=== PATIENT | male | born 1945 | race Caucasian/White ===

== ENCOUNTER 2023-02-12 12:12 | Observation (INO) ==
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
[2023-02-12 16:36] LABS: BILIRUBIN,URINE Negative (NEGATIVE); CLARITY,URINE Clear (CLEAR); COLOR,URINE Yellow (YELLOW); GLUCOSE, URINE (UA) Negative (NEGATIVE); KETONES,URINE 1+ (NEGATIVE); LEUKOCYTE ESTERASE ,URINE Negative (NEGATIVE); NITRITE,URINE Negative (NEGATIVE); PROTEIN,URINE Negative (NEGATIVE); URINE, BLOOD Negative (NEGATIVE); UROBILINOGEN,URINE 0.2 (0.2)
[2023-02-12 16:44] LABS: ALANINE AMINOTRANSFERASE 16.3 U/L (0-50); ALBUMIN 4.07 g/dL (3.5-5.0); ALKALINE PHOSPHATASE 48.3 U/L (56-119); ASPARTATE AMINO TRANSFERASE 21.5 U/L (17-59); BILIRUBIN,TOTAL 1.05 mg/dL (0.2-1.3); BLOOD UREA NITROGEN 12.6 mg/dL (9-20); CALCIUM 9.11 mg/dL (8.4-10.2); CARBON DIOXIDE 24.2 mmol/L (22-30.0); CHLORIDE 104.2 mmol/L (98-107); CREATININE 0.89 mg/dL (0.60-1.10); GLUCOSE 99.8 mg/dL (74-106); POTASSIUM 4.15 mmol/L (3.5-5.1); SODIUM 137.3 mmol/L (134.5-145); TOTAL PROTEIN 7.27 g/dL (6.3-8.2)
[2023-02-12 17:21] LABS: AMPHETAMINE SCREEN,URINE NEGATIVE (NEGATIVE); BARBITURATE SCREEN,URINE NEGATIVE (NEGATIVE); METHADONE URINE SCREEN NEGATIVE (NEGATIVE); METHAMPHETAMINES SCREEN,URINE NEGATIVE (NEGATIVE); OPIATE SCREEN,URINE NEGATIVE (NEGATIVE); PHENCYCLIDINE SCREEN,URINE NEGATIVE (NEGATIVE)
[2023-02-12 17:22] LABS: BENZODIAZEPINES SCREEN,URINE NEGATIVE (NEGATIVE); CANNABINOID SCREEN,URINE NEGATIVE (NEGATIVE); COCAIN SCREEN,URINE NEGATIVE (NEGATIVE); OXYCODONE URINE SCREEN NEGATIVE (NEGATIVE); PROPOXYPHENE URINE SCREEN NEGATIVE (NEGATIVE); TRICYCLIC ANTIDEPRESSANTS URIN NEGATIVE (NEGATIVE)
[2023-02-12 17:23] LABS: BASOPHILS % (AUTO) 0.3 % (0.0-3.0); EOSINOPHILS # (AUTO) 0.1 K/ul (0.0-0.7); EOSINOPHILS % (AUTO) 1.8 % (0.0-7.0); HEMATOCRIT 42.7 % (42.0-52.0); HEMOGLOBIN 13.9 g/dl (14.0-18.0); IMMATURE GRANULOCYTE % (AUTO) 0.3 % (0.0-5.0); LYMPHOCYTES # (AUTO) 1.9 K/uL (0.60-3.4); LYMPHOCYTES % (AUTO) 26.4 (10.0-50.0); MEAN CORPUSCULAR HEMOGLOBIN 31.4 pg (27.0-31.0); MEAN CORPUSCULAR HGB CONC 32.6 (31.8-35.4); MEAN CORPUSCULAR VOLUME 96.6 fl (80.0-94.0); MONOCYTES # (AUTO) 0.6 K/uL (0.4-2.0); MONOCYTES % (AUTO) 7.8 (0-10); NEUTROPHILS # (AUTO) 4.6 K/ul (2.0-6.9); NEUTROPHILS % (AUTO) 63.4 % (42.2-75.2); PLATELET COUNT 296 10^3/uL (140-440); RDW COEFFICIENT OF VARIATION 12.3 % (11.6-14.8); RED BLOOD COUNT 4.42 10^6/ul (4.70-6.10)
[2023-02-12] MEDS ORDERED: TYLENOL PO PRN (17:27)
[2023-02-12] MEDS ORDERED: HYDROCORTISONE 1% CREAM TP PRN (17:27)
[2023-02-12 18:37] VITALS: BMI 18.9
[2023-02-12] MEDS: NEURONTIN PO SCH (21:28)
[2023-02-13] MEDS: NEURONTIN PO SCH ×3 (08:14→16:17)
[2023-02-13] MEDS ORDERED: VESICARE PO SCH (09:00)
[2023-02-13] MEDS ORDERED: ZOLOFT PO SCH (09:00)
[2023-02-13 10:08] VITALS: PULSE 55
[2023-02-13 13:11] VITALS: BP 108/57; RESP 24; TEMP 98.5
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
== END 2023-02-13 17:38 | disposition home or self-care (01) ==
LOC: MEDSURG B 12:12 → ED 12:12 → MEDSURG B 18:10
PROVIDERS: ADMIT Hospitalist; ATTEND Nurse Practitioner Family
DX: M79.2 Neuralgia and neuritis, unspecified; T76.91XA Unspecified adult maltreatment, suspected, initial encounter; F02.80 Dementia in other diseases classified elsewhere, unspecified severity, without behavioral disturbance, psychotic disturbance, mood disturbance, and anxiety; S80.819A Abrasion, unspecified lower leg, initial encounter; G30.9 Alzheimer's disease, unspecified